=== PATIENT | female | born 1950 | race Caucasian/White ===

== ENCOUNTER 2020-07-05 21:27 | Inpatient (IN) | payer OTHER ==
[~2020-07-05] VITALS: Ht 160 cm; Wt 113.4 kg
[2020-07-05 21:28] VITALS: BP 163/91
[2020-07-05] MEDS ORDERED: METFORMIN HCL500 M3 PO (21:39)
[2020-07-05] MEDS ORDERED: PRINIVIL10 MG PO (21:39)
[2020-07-05] MEDS ORDERED: ALPRAZOLAM 0.0.25 M1 PO (21:40)
[2020-07-05] MEDS ORDERED: LIPITOR 20 MG T20 M1 PO (21:50)
[2020-07-05 23:05] LABS: URINE BILIRUBIN 2+ (Negative); URINE BLOOD 2+ (Negative); URINE CLARITY CLEAR; URINE COLOR YELLOW; URINE GLUCOSE-RANDOM* NEGATIVE (Negative); URINE KETONES 1+ (Negative); URINE NITRITE-REFLEX NEGATIVE (Negative); URINE PROTEIN (DIPSTICK) TRACE (Negative); URINE SPECIFIC GRAVITY >= 1.030 (1.005-1.035); URINE UROBILINOGEN 0.2 E.U./dl (0.2-1.0)
[2020-07-05 23:06] LABS: ABSOLUTE NEUTROPHILS 10.2 thou/uL (1.4-8.2); BASOPHILS 0.7 % (0.0-2.0); EOSINOPHILS 0.5 % (0.0-3.0); HEMATOCRIT 38.1 % (37.0-47.0); HEMOGLOBIN 12.4 gm/dL (12.0-15.0); LYMPHOCYTES 9.4 % (24.0-44.0); MCHC 32.6 g/dL (28.0-37.0); MCV 92.1 fL (80.0-100.0); MONOCYTES 4.8 % (1.0-8.0); PLATELET COUNT 329 thou/uL (150-400); POLYS 84.6 % (36.0-66.0); RBC 4.13 mil/uL (4.20-5.00); RDW 16.7 % (10.5-14.5)
[2020-07-05 23:11] LABS: URINE LEUKOCYTES-REFLEX 1+ (Negative)
[2020-07-05 23:12] LABS: ICTOTEST (BILI CONFIRMATORY) Positive (Negative)
[2020-07-05 23:13] LABS: AMP/METHAMP Negative (Negative); BARBITURATES Negative (Negative); BENZODIAZEPINES POSITIVE (Negative); COCAINE Negative (Negative); METHADONE Negative (Negative); OPIATES Negative (Negative); PCP Negative (Negative)
[2020-07-05 23:14] LABS: HYALINE CASTS 0-3 Few /LPF (None Seen); MUCUS 0-3 Light strn/LPF (None Seen); SQUAMOUS 0-3 Few /LPF (0-3); URINE RBC 3-10 Few /HPF (0-2)
[2020-07-05 23:15] LABS: BACTERIA-REFLEX 1-9 Few /HPF (None Seen); CRYSTALS None Seen /LPF (None Seen); TRANSITIONAL EPITHEL CELL 0-3 Few /LPF (None Seen)
[2020-07-05 23:18] LABS: ANION GAP 18 mmol/L (7-16); BUN 18 mg/dL (7-18); CHLORIDE 102 mmol/L (98-107); CO2 20 mmol/L (21-32); CREATININE 1.5 mg/dL (0.6-1.0); GLUCOSE 119 mg/dL (74-106); POTASSIUM 3.8 mmol/L (3.5-5.1); SODIUM 140 mmol/L (136-145)
[2020-07-05 23:28] LABS: ALBUMIN 3.7 g/dL (3.4-5.0); SALICYLATE < 2.8 mg/dL (2.8-20.0); SGOT 22 U/L (15-37); SGPT 19 U/L (30-65); TOTAL BILIRUBIN 0.9 mg/dL (0.2-1.0); TOTAL PROTEIN 7.7 g/dL (6.4-8.2); TROPONIN-I <0.06 ng/mL (<0.06)
[2020-07-05 23:29] LABS: MAGNESIUM 0.7 mg/dL (1.8-2.4)
--- NOTE | 2020-07-06 10:46 | EKG ---
[facility] [place] [address] ELECTROCARDIOGRAM REPORT Name: ROBERTO CARLOS MALIK Room #: 170-9 ADM IN M.R.#: [id number] Admission: 07/06/20 Attend Phys: Darin Castro MD Discharge: Date of : 50 Report #: [id number] THIS REPORT FOR: cc: FAM - Family physician unknown FAM - Family physician unknown Chapito Garrett MD ~ THIS REPORT FOR: //name// [facility] ED Test Date: 2020-07-05 Test Time: 22:38:12 Pat Name: ROBERTO CARLOS MALIK Department: Room: [facility] Gender: F Cardiopulmonary Technologist: no : 1950 Requested By: Rashaad Givens Order Number: [id number] MD: Chapito Garrett Measurements Intervals [place] Rate: 79 P: 21 [place]: 168 QRS: -21 QRSD: 85 T: 31 QT: 363 QTc: 417 Interpretive Statements Sinus rhythm Abnormal R-wave progression, early transition Left ventricular hypertrophy No previous ECG available for comparison Electronically Signed On 07-06-2020 10:46:18 CDT by Chapito Garrett [email or web address] <ELECTRONICALLY SIGNED> By: Chapito Garrett MD 07/06/20 1046 37 37 Chapito Garrett MD /EPI
--- NOTE | 2020-07-06 15:09 | NUR ---
PT'S SON JEANCARLOS [phone]
--- NOTE | 2020-07-06 19:13 | NUR ---
PATIENT ADMITTED TO ROOM AT THIS TIME. ORIENTED TO ROOM AND CALL LIGHT. PLEASANT AT THIS TIME. RESPIRAITONS ARE NON LABORED.
[2020-07-06 19:22] VITALS: BP 152/62
[2020-07-06 21:51] LABS: ABSOLUTE NEUTROPHILS 5.7 thou/uL (1.4-8.2); BASOPHILS 0.9 % (0.0-2.0); EOSINOPHILS 2.8 % (0.0-3.0); HEMATOCRIT 32.9 % (37.0-47.0); HEMOGLOBIN 10.8 gm/dL (12.0-15.0); LYMPHOCYTES 19.8 % (24.0-44.0); MCH 30.7 pg (26.0-34.0); MCHC 32.8 g/dL (28.0-37.0); MCV 93.8 fL (80.0-100.0); MONOCYTES 6.1 % (1.0-8.0); PLATELET COUNT 271 thou/uL (150-400); POLYS 70.4 % (36.0-66.0); RDW 17.3 % (10.5-14.5); WBC 8.1 thou/uL (4.0-11.0)
[2020-07-06 21:57] LABS: CALCIUM 7.8 mg/dL (8.5-10.1); CREATININE 1.1 mg/dL (0.6-1.0); MAGNESIUM 1.6 mg/dL (1.8-2.4); POTASSIUM 3.8 mmol/L (3.5-5.1)
--- NOTE | 2020-07-06 23:10 | NUR ---
PT ARRIVED TO UNIT AT 1845. PT RESTING IN BED. PT TALKING TO NURSE WITH HER EYES CLOSED, REQUESTING LIGHTS NOT BE ON OVERHEAD. PT HAS BLUNTED AFFECT ANSWERED ADMISSION QUESTIONS WITH SHORT RESPONSES. PT ALERT TO SELF SITUATION. POOR HISTORIAN. NO PAPERWORK FROM ASISSTED LIVING. NO FAMILY CONTACT INFORMATION. PT REPORTED HAVING MUSLE SPASMS IN ARMS. PT GROGGY, HAD PREVIOUS HALDOL MEDICATION. IV INFILTRATED. PROVIDER NOTIFIED. WILL ATTEMPT TO RESTART. PT HAS PALE SKIN TONE, BLE EDEMA. BED ALARM ON.
--- NOTE | 2020-07-07 01:23 | NUR ---
PT AWAKENED, AMBULATED TO RESTROOM STEADY GAIT, CONTINENT. 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 PT STATED HER SON DOES LIVE IN THE AREA BUT HER CELL PHONE IS NOT CHARGED AND SHE DOES NOT KNOW THE NUMBER. PT STATED SHE WAS ADMITTED BECAUSE SHE CALLED THE POLICE BECAUSE SHE BELIEVED OLDER TEENS, UNDER 20 WERE IN HER HOUSE WATCHING TV AND ON HER [place]. SHE BELIEVED THEY WERE FROM THE AMUSEMENT AREA LOCATED NEAR HER ARCHER APARTMENT. BED ALARM ON. AT THIS TIME PT STILL DOES NOT HAVE IV ACCESS, WITH GAUGE CHECKER HAVING A FAILED ATTEMPT.
--- NOTE | 2020-07-07 02:36 | NUR ---
IV STARTED FLUIDS AND ANTIBIOTICS GIVEN.
[2020-07-07 05:14] VITALS: BP 149/56
[2020-07-07 08:00] VITALS: BP 155/81
[2020-07-07 12:52] LABS: HEMOGLOBIN 11.3 gm/dL (12.0-15.0); MCH 30.7 pg (26.0-34.0); MCHC 33.1 g/dL (28.0-37.0); MCV 92.6 fL (80.0-100.0); RBC 3.67 mil/uL (4.20-5.00); RDW 16.7 % (10.5-14.5); WBC 8.1 thou/uL (4.0-11.0)
[2020-07-07 13:06] LABS: CALCIUM 8.1 mg/dL (8.5-10.1); MAGNESIUM 1.3 mg/dL (1.8-2.4); POTASSIUM 3.9 mmol/L (3.5-5.1)
[2020-07-07 15:09] VITALS: BP 145/78
--- NOTE | 2020-07-07 18:39 | NUR ---
RN HAS ASSUMED PT'S CARE AT 0700AM, PT IS A&OX2 ( PERSON AND PLACE), PT IS CONFUSED AT TIME, PT'S VS ARE STABLE, PT IS CONTINUING IV FLUID AND IV ABX, PT HAS LOW MAGNISSUM ( 1.3) REOLACEMENT, PT'S COVID TEST WAS NEGATIVE , PT'S ISOLATION HAS DC PER DR CRAWFORD, PT DOES NOT HAVE PAIN AND SOB.
[2020-07-07 19:30] VITALS: BP 146/69
[2020-07-07 23:00] VITALS: BP 163/86
--- NOTE | 2020-07-08 00:04 | NUR ---
ASSUMED CARE FROM DAY SHIFT PT RESTING IN BED CALM COOPERATIVE, ALERT AND ORIENTED X4 FORGETFUL IN NTHAT PT ATTEMPTED TO GET UP TO BSC WITHOUT CALLING ASSESSMENT COMPLETED AND CHART DISCUSSED POC ,VERBALIZZED UNDERSTANDING. PT TO BE TRANFERRRD TO ROOM 452. HOUSE DESIGNER SHOWS NSR. PT STABLE TO TRANFER , REPORT CALLED TO INOCENCIO NICHOLS.
--- NOTE | 2020-07-08 03:26 | NUR ---
ASSUMED PT CARE AT 2240. PT IS ALERT TO SELF AND SITUATION. IV IN LEFT WRIST. NS RUNNING AT 75. VITAL SIGNS STABLE. PT IS A SBA. PT FORGETS TO CALL FOR ASSISTANCE. PT IS SLEEPING IN HER ROOM. FALL BUNDLE IN PLACE, CALL LIGHT IN REACH.
[2020-07-08 05:18] VITALS: BP 148/103
[2020-07-08 06:17] LABS: CALCIUM 8.2 mg/dL (8.5-10.1); MAGNESIUM 1.8 mg/dL (1.8-2.4); POTASSIUM 3.7 mmol/L (3.5-5.1)
--- NOTE | 2020-07-08 07:26 | NUR ---
I AGREE WITH ALL CHARTING BY Martha MARTIN LPN
--- NOTE | 2020-07-08 09:17 | NUR ---
Nutrition: Pt admitted confusion[place]I from [place] facility. Delerium, possible psychosis. Psych consult. PMH includes anxiety, depression. Poor historian noted. No weight hx. BMI 44, extreme class 3 obesity. Meds/labs reviewed. PO documented as 20%/20%/50% of meals yesterday. Pt unable to voice many food preferences or usual appetite but did state she had some stomach issues/nausea prior to admit. Drinks Boost at home. Offer ensure daily and follow po trends. RD encouraged po > 50% of meals and offered assist to order meals as desired. Followup 07/12 if pt remains admitted on acute floor.
[2020-07-08 14:50] VITALS: BP 188/105
--- NOTE | 2020-07-08 15:04 | NUR ---
PT ADMITTED RELATED TO CONFUSION. CM REVIEWED CHART AND SPOKE WITH CARE TEAM. CM CALLED AND SPOKE WITH PT'S SON HE INDICATED THAT PT RESIDES IN AN INDEPENDENET LIVING APARTMENT AT [facility]. 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 HE INDICATED THAT PT HAS A PCP BUT CAN'T RECALL NAME. HE INDICATED THAT THEY LIKELY WOULDN'T BE OPPOSED TO [facility]/HH SERVICES. CM TO FOLLOW INDICATED WITH DC PLANNING. MAULIKTER WITH [facility] TO ASSESS PT WELL.
[2020-07-08 19:47] VITALS: BP 155/84
--- NOTE | 2020-07-08 20:05 | NUR ---
ASSUMED PT CARE THIS AM. PT HAD ELEVATED BLOOD PRESSURE, AND BLOOD PRESSURE MEDICATIONS WERE ORDERED AND GIVEN. BLOOD PRESSURE HAS DECREASED THROUGHOUT THE SHIFT. PT WAS A&OX4, BUT THROUGHOUT THE SHIFT BECAME ALERT TO PERSON AND PLACE. PT HAD NO SKIN ISSUES, AND USED THE BEDSIDE COMMODE APPROPRIATELY. PT ON TELEMETRY WAS NSR. PT HAD AN IV IN HER LEFT WRIST WITH FLUIDS RUNNING, BUT REMOVED HER IV AT 1420. PATIENT STARTED HEARING AUDITORY HALLUCINATIONS AROUND 1300, WAS ABLE TO BE REDIRECTED, AND AT 1420 PATIENT ATTEMPTED TO LEAVE THE UNIT STATING THAT SHE HAD A CAR WAITING FOR HER. PATIENTS SON WAS CALLED AND ATTEMPTED TO REDIRECT, BUT PATIENT FREQUENTLY TRIED TO LEAVE UNIT. PATIENT GIVEN HALDOL AND AGREES TO SIT IN A CHAIR. PT REFUSES TO LAY IN BED WITH THE BED ALARM ON, AND PT REFUSES TO SIT IN CHAIR WITH A CHAIR ALARM. NIGHT NURSE MADE AWARE. PT DID NOT MAKE HER NEEDS KNOWN TO THE NURSING STAFF EVEN THOUGH EDUCATED TO USE THE CALL LIGHT. DR. MCCABE AND DR CRAWFORD MADE AWARE OF PT BEHAVIOR. PT REMOVED AN ECG LEAD AND REFUSES TO HAVE IT PUT BACK ON. PT REFUSED BATH OR SUSAN CARE. NIGHT NURSE ENDORSED OF PATIENT PROGRESSION.
--- NOTE | 2020-07-09 05:50 | NUR ---
Assumed pt care at 1900. Pt A/OX4,pleasant sitting on the chair w/o any behavioral issues noted;sitter in room with pt through the night with episodes of hallucination or agitation. Took HS meds w/o any problems. Up with SBA. Continent of B&B. Pt chose to sleep on the recliner at night. Pt still has no IV Dr. aware. Will continue to monitor pt.
[2020-07-09 07:21] VITALS: BP 173/82
[2020-07-09 09:13] VITALS: BP 173/82
--- NOTE | 2020-07-09 11:24 | NUR ---
Assumed pt care at 7am.Pt in and out of chair and bed independently.Rn and brusher tender frequently monitoring pt for safety.Assessment completed.vss but elevated bp noted.Am meds given with breakfast and well tolerated.Dr Larios here,stated that pt might possibly dc to [facility] later today if hallucination better.Pt in bed resting and watching tv at present.Fall bundle in place.Will continue to monitor.
--- NOTE | 2020-07-09 16:39 | NUR ---
CARE TEAM INDICATED THAT PT HAS BEEN ACCEPTED FOR ADMISSION TO [address] [place] [address] AND IS MEDICALLY STABLE TO DC THERE TODAY. CM CALLED AND NOTIFIED PT'S SON. HE IS AWARE AND AGREEABLE. CM PROVIDED HIM PHONE NUMBER FOR UNIT. CHART COPY ORDERED. NURSE CALLED REPORT. NO OTHER CM INTERVENTION INDICATED. CASE CLOSED.
[2020-07-09] MEDS ORDERED: METFORMIN HCL500 M3 PO (20:17)
[2020-07-09] MEDS ORDERED: LISINOPRIL2.5 MG PO (20:18)
[2020-07-09] MEDS ORDERED: ALPRAZOLAM XR3 MG PO (20:20)
[2020-07-09] MEDS ORDERED: LIPITOR 20 MG T20 M1 PO (20:21)
== END 2020-07-09 18:10 | DRG 689 ==
LOC: ER 21:27 → 4W 07-06 05:09 → EROBS 07-06 05:09 → 3W 07-06 18:28 → 4W 07-07 22:47
PROVIDERS: Emergency Medicine; ADMIT Internal Medicine; ATTEND Internal Medicine
DX: N39.0 Urinary tract infection, site not specified (principal); G93.41 Metabolic encephalopathy; Z68.41 Body mass index [BMI] 40.0-44.9, adult; I12.9 Hypertensive chronic kidney disease with stage 1 through stage 4 chronic kidney disease, or unspecified chronic kidney disease; E11.22 Type 2 diabetes mellitus with diabetic chronic kidney disease; E78.5 Hyperlipidemia, unspecified; N18.9 Chronic kidney disease, unspecified; F41.9 Anxiety disorder, unspecified; B96.89 Other specified bacterial agents as the cause of diseases classified elsewhere; M81.0 Age-related osteoporosis without current pathological fracture; G47.00 Insomnia, unspecified; R63.4 Abnormal weight loss; Z20.828 Contact with and (suspected) exposure to other viral communicable diseases; E83.42 Hypomagnesemia; F32.9 Major depressive disorder, single episode, unspecified; Z79.899 Other long term (current) drug therapy; Z79.84 Long term (current) use of oral hypoglycemic drugs; Z88.1 Allergy status to other antibiotic agents; Z88.2 Allergy status to sulfonamides
CPT/HCPCS: 10045; 10879

== ENCOUNTER 2020-07-09 16:58 | Inpatient (IN) | payer OTHER ==
[~2020-07-09] VITALS: Ht 160 cm; Wt 110.5 kg
[~2020-07-09 16:58] MED LIST: ALPRAZOLAM 0.0.25 M1 PO; LIPITOR 20 MG T20 M1 PO; METFORMIN HCL500 M3 PO; PRINIVIL10 MG PO
--- NOTE | 2020-07-09 19:16 | NUR ---
Patient was discharged from 452 and arrived for admission at 1755 to [facility] room 522B. She was downstairs for low Magnesia and visual hallucinations. Allergy=Sulfa. Mental Healathwise she has been treated for Anxiety and Depression--mostly Anxiety. She is a Full Code status. Patient is alert and oriented x 4. Other medical issues include HTN., DMII, per Dr. Larios's note 07-09-20 UTI was ruled out on cultures-Mixed Debbi. Yesterday she tried to elope from the hospital, today she was fine per day nurse report on 4th floor. She has been on a Heart Healthy Diet. Her in a hospital about 4 months ago with several medical complications blood clots in the lungs and being coded. She is a voluntary patient. In the pasts 5-6 months she reports about 60 # weight loss. Ht.=5'3.5"; 238.9# in the bed. Her ankles are [id number]. She's had stomach problems with emesis, can't eat very well, visual hallucinations, forgetfulness she associates with the grief of her . No substance abuse history, nor smoking history. She has right forearm and a tiny scab R. forearm. She thought she was on a plane yesterday in the [facility] where a saint statue was next to a great big buidling. She was oriented to her room, given welcome packet/bucket toileteries, shown the unit and introduced to her roommate and a couple of other patients she might like to converse with.
[2020-07-09] MEDS ORDERED: METFORMIN HCL500 M3 PO (20:17)
[2020-07-09] MEDS ORDERED: LISINOPRIL2.5 MG PO (20:18)
[2020-07-09] MEDS ORDERED: ALPRAZOLAM XR3 MG PO (20:20)
[2020-07-09] MEDS ORDERED: LIPITOR 20 MG T20 M1 PO (20:21)
--- NOTE | 2020-07-10 03:13 | NUR ---
Assumed care of patient this pm shift. Patient is in good spirits and accepting of being admitted to [facility]. Patient is alert and oriented x3. Patients affect is slightly blunted. Patient is medication adherent and takes meds whole with thin fluids. Patient is ambulatory with a steady gait and not considered a falls risk. Patients assessment shows no signs of acute distress. Patient is somewhat isolative. Paitent denies pain. Patient denies hi/si. Patient is continent of bowel and bladder. Patient did not have any concerns at this time. We will continue to monitor per hospital policy.
[2020-07-10 08:00] VITALS: BP 142/93
[2020-07-10 08:58] VITALS: BP 142/93
[2020-07-10 19:37] VITALS: BP 151/92
[2020-07-10 19:54] VITALS: BP 138/92
[2020-07-11 00:28] VITALS: BP 138/92
--- NOTE | 2020-07-11 00:32 | NUR ---
Assumed care on 07/10/20 @ 19:30, A&Ox4 Calm and cooperative with care. Ambulates with walker, low fall risk and Horowitz score15. Denies hallucinations denies pain. Reports last bm yesterday on 07/09. 100% of evening snack eaten. Socializing with peers, seated around a table in the mileu. Retired to bed after TV is turned off @ 2200. Bed in low position, bed alarm set, will continue to monitor as per unit protocol for safety and comfort.
[2020-07-11 07:32] VITALS: BP 127/78
--- NOTE | 2020-07-11 09:35 | NUR ---
SITTING QUIETLY WITH PEERS ON INITIAL APPROACH THIS AM-SMILING AND PLEASANT WITH PEERS AND STAFF BUT OFFERS MINIMAL VERBAL [id number] TO NAME IS AWARE IN "MEDICAL BUILDING" GAIT STEADY WITHOUT ASSISTIVE DEVICES-WANDERING IN HALLWAYS AND APPEARS UNABLE TO FIND ROOM WAS STANDING AT LOCKED EXIT DOOR STATING SHE WAS LOOKING FOR HER ROOM. DENIES C/O PAIN. NO NOTED OR REPORTED A/V HALLUCINATIONS OR DELUSIONAL THOUGHTS.
--- NOTE | 2020-07-11 12:35 | NUR ---
SRI met with pt in her office and discussed why pt was on unit. She talked about her grief and that she lost her on 02/12/2020. She said she lost her bestfriend. SW recapped what was discussed in yesterday's grief and loss group. Pt and SW talked about what stage of grief she is in. They also discussed somatic symptoms. Pt said today she is having difficulty walking. She said she was ready to lay down. SW assisted her to her room in a wheelchair because pt said she was too weak to walk. SRI relayed this info to pt's nurse. SRI also left a tablet with a mindfulness mediation with pt in her room for relaxation purposes. SW team will follow pt during her stay on this unit.
[2020-07-11 19:27] VITALS: BP 136/69
--- NOTE | 2020-07-12 04:48 | NUR ---
Assumed care of pt @ 1900. Pt calm et cooperative with pleasant demeanor this shift. Took medications whole without difficulty. Ambulates the halls ad barrie with steady gait. VSWNL. Health assessment with no abnormalities noted at present time. Denies SI/HI/AH/VH at present time. Socialized in dayroom with peers until HS. Currently resting in bed with eyes closed. Will continue to monitor per protocol.
[2020-07-12 07:51] VITALS: BP 143/65
--- NOTE | 2020-07-12 10:12 | NUR ---
Assumed care 0700. Pleasant, cooperative, compliant with medications. Voices no complaints/concerns. Conversant with peers. Receiving phone call.
--- NOTE | 2020-07-12 11:32 | NUR ---
SRI met with pt and completed a SLUMS. She scored a . SRI provided an update to Dr. Mosley. SW asked pt how she was feeling and she said she is feeling better. SW team will continue to follow pt during her stay on this unit.
--- NOTE | 2020-07-12 16:40 | NUR ---
Compliant with medications and milieu groups. Has been using colored markers coloring. Visiting with peers. No voiced concerns/goals/pain. No SI/HI/AH/VH. Said she did not sleep well last night due to roommate getting up so many times to void. Patient moved to 518 A.
--- NOTE | 2020-07-12 18:30 | NUR ---
Dr. Kirby's office was left voice mail for routine testing from Dr. Mosley.
[2020-07-12 19:32] VITALS: BP 115/55
--- NOTE | 2020-07-13 01:59 | NUR ---
PT ALERT AND ORIENTED X4. CALM AND COOPERATIVE. TAKES MEDS WHOLE WITH NO DIFFICULTIES.LOW FALL RISK, GETS AROUND WITH WALKER. PT WENT TO BED EARLIER IN SHIFT. SEEMS TO BE RESTING WELL.NO SIGNS OF HALLUCINATIONS.
[2020-07-13 08:00] VITALS: BP 144/58
--- NOTE | 2020-07-13 09:05 | NUR ---
0700 ASSUMED CARE OF PATIENT, PATIENT AWAKE IN ROOM AT THAT TIME. 0730 PATIENT OUT TO DAYROOM AMB WITH WALKER WITH STEADY GAIT. 0840 MEDICATIONS GIVEN WHOLE WITHOUT DIFFICULTY. NO C/O PAIN, DENIES NEEDS, DENIES SI/HI. PATIENT SITTING WITH PEERS COMMUNICATING WELL. VS STABLE WITH NO TEMP.
--- NOTE | 2020-07-13 12:23 | H ---
[facility] [place] [address] HISTORY AND PHYSICAL Name: ROBERTO CARLOS MALIK Room #: 518A-A ADM IN M.R.#: [id number] Admission: 07/09/20 Attend Phys: oRse Wood MD Discharge: Date of : 50 Report #: [id number] THIS REPORT FOR: cc: FAM - Family physician unknown FAM - Family physician unknown Eris Mosley DO ~ CC: RINA unknown Rose Wood DATE OF SERVICE: 07/09/2020 INPATIENT PSYCHIATRIC EVALUATION ATTENDING PHYSICIAN: Eris Mosley DO. MEDICAL CONSULTANTS: Suma Nagy and her collaborating physician, Darin Castro MD REASON FOR ADMISSION: Referral from Dr. Rose Wood, the consultation, and he is a psychiatrist here at [facility], who saw the patient on the medical floor. In addition to suffering from delirium due to urinary tract infection, the patient has had a profound depression in the last 3 months following the of her , 39 years. HISTORY OF PRESENT ILLNESS: This is a 69-year-old morbidly obese female, reporting depression, sadness, difficulty concentrating evolution, worsening over the past 3 months. The patient had of her in January of this year and a month later, moved to jail community. She has felt very sad, low motivation as stated, has not been able to eat, lost greater than 30 pounds since of her . She lives alone reportedly in assisted living, but I thought it was ____ from her description. She feels very isolated after her 's and the COVID social distancing measures at her facility. PAST PSYCHIATRIC HISTORY: Major depressive disorder, has had outpatient treatment trial. She told me she was treated by Dr. Marrero and another unspecified doctor. She changed the PCP due to cost. We called her pharmacy and sounds like she was taking 150 mg of Effexor and 150 mg of Wellbutrin XL, this was up to a week or so before admission. Then on the medical floor, they diagnosed UTI, hypomagnesemia, and visual hallucinations. Chest x-ray was done, which showed no acute abnormalities. Additional history from Dr. Thompson, apparently during the medical admission, she was so confused and agitated, she attempted to leave the apartment. ALLERGIES: SULFA. [facility] [address] [place] [address] HISTORY AND PHYSICAL Name: ROBERTO CARLOS MALIK [facility] M.R.#: [id number] Admission: 07/09/20 Attend Phys: Rose Wood MD Discharge: Date of : 50 Report #: [id number] HOME MEDICATIONS: Noted to be metformin 500 mg p.o. daily, lisinopril 10 mg p.o. daily, alprazolam 0.25 mg p.o. b.i.d., and atorvastatin 20 mg p.o. daily. SOCIAL HISTORY: No history of smoking. Past history of alcohol, none recent, special occasions. No recreational drug use. No significant family history. REVIEW OF SYSTEMS: From the hospitalist's eval today includes: CONSTITUTIONAL: Denies fever, chills or night sweats. EYES: Denies visual changes. HENT: Denies congestion, headache, difficulty swallowing. RESPIRATORY: Denies cough, shortness of breath, hemoptysis or sputum production. CARDIOVASCULAR: Denies chest pain, syncope. GASTROINTESTINAL: Denies abdominal pain, nausea, vomiting, diarrhea or blood loss. GENITOURINARY: Denies hematuria or dysuria. MUSCULOSKELETAL: Denies back pain. SKIN: Denies rash, bruise or change in color. NEUROLOGIC: Denies focal weakness, seizures or tremors. PSYCHIATRY: Depression, weight loss. Does report nightmares and intermittent panic attacks. Of note, she describes experience where she thought she was on an airplane and flew away and this was only yesterday. LABORATORIES ON MEDICAL ADMISSION: 07/08/2020, sodium 140, potassium 3.7, chloride 106, bicarbonate 21, anion gap 13, BUN 17, creatinine 1.0, estimated GFR 55, glucose 106, calcium 8.2, ionized calcium 4.4, phosphorus 3.3, magnesium 1.8, total bilirubin 0.9, AST 22, ALT 19, alkaline phosphatase 83. Troponin less than 0.06, NT-proBNP of 594. Total protein 7.7, albumin 3.7. Vitamin B12 low at 305, Vitamin D low at 17.9. Urinalysis had multiple positives. Microbiology failed to culture a specific organism. COVID-19 PCR serology was negative. Toxicology was negative except positive for benzodiazepines, which was expected. ADDITIONAL SOCIAL HISTORY: Born in [place], [place], raised in [place], [place]. She has 3 master's degrees. 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 She had an education which I forgot. She has one son that she told me about. Denies physical, sexual or emotional abuse. Now retired. She said her of chronic illness. Denied service. Denies criminal justice history. Unclear history of international travel. PHYSICAL EXAMINATION: Normal gait and station. MENTAL STATUS EXAMINATION: This is a well-developed, well-nourished, obese female appearing stated age. Attention intact. Concentration intact. [facility] [address] [place] [address] HISTORY AND PHYSICAL Name: ROBERTO CARLOS MALIK Room #: 518A-A ADM IN M.R.#: [id number] Admission: 07/09/20 Attend Phys: Rose Wood MD Discharge: Date of : 50 Report #: [id number] Speech is normal in rate, volume and tone. Thought process: Linear and goal directed. Thought content: Focused on ameliorating situation. Denied SI or HI. Some helplessness, some hopelessness. Denied auditory, visual or tactile hallucinations. Endorses nightmares "flashbacks" consider them such, especially disturbing dreams." Memory is not formally tested, but we will do in the next several days. Insight fairly limited. Judgment fair. Fund of knowledge above average. FORMULATION: A 69-year-old female admitted for severe depressive episode with resolving psychosis secondary to urinary tract infection. PLAN: Evaluate, stabilize and obtain collateral. We will hold off starting antipsychotics as she may not need it. I reviewed with her antidepressant history. I will go ahead and start her on mirtazapine 15 mg p.o. at bedtime and she has been off bupropion and Effexor. We will not start those at this time, particularly the Effexor she felt had lost efficacy in her case and she may have been 225 mg on it. Current medications are B12 1000 mcg p.o. daily due to low B12, cholecalciferol 1000 International Units p.o. daily, mirtazapine 15 mg p.o. at bedtime, metformin 500 mg p.o. b.i.d., calcium carbonate 500 mg 3 times a day. Also, using a couple more doses of IM B12, lisinopril 10 mg p.o. daily, famotidine 20 mg p.o. daily, atorvastatin 20 mg p.o. daily. House PRNs. ESTIMATED LENGTH OF STAY: 5-10 days. Time spent on interview, review of records, coordination of this case about 45 minutes. STRENGTHS: She is insured. Intelligent. WEAKNESSES: Multiple health problems including morbid obesity. <ELECTRONICALLY SIGNED> By: Eris Mosley DO 07/13/20 1223 30 30 Eris Mosley DO /nt
--- NOTE | 2020-07-13 16:38 | NUR ---
SW met with patient to help her process her grief as a result of of her approximately 4 months ago. SW helped validate her experience. Discussed the stages of grief and helped patient to identify where she is in the process. Patient reported feeling better.
[2020-07-13 20:19] VITALS: BP 126/75
--- NOTE | 2020-07-14 01:05 | NUR ---
Patient assessed AND IS ALERT X 4. SKIN WARM AND DRY. RESP EVEN AND UNLABORED. IS VERY COOPERATIVE WITH NO SI/HI SYMPTOMS NOTED. TAKEN HER MEDIACTION WELL. TYLENOL GIVEN FOR BACK PAIN WITH GOOD RELIEF. ALSO REQUESTED A SPRITE. NO CONFUSION NOTED. VS STABLE. NO HALLUCINATIONS NOTED. SLEPT WELL . REQUESTED FOR EXTRA BLANKETS SHE WAS COLD. UP AD VIBHA IN HALLWAY AND DINNING ROOM. SITS WITH OTHER PATIENTS AND IS VERY COOERATIVE WITH THEM. NO EDEMA NOTED. LUNGS CTA. CONT PLAN OF CARE. NO OTHER SYMPTOMS NOTED.
[2020-07-14 07:30] VITALS: BP 141/73
--- NOTE | 2020-07-14 10:11 | NUR ---
0700 ASSUMED CARE OF PATIENT, PATIENT SITTING UP IN CHAIR IN DAYROOM AT THAT TIME. PATIENT SITTING WITH PEER COMMUNICATING WELL. 0840 MEDICATION GIVEN WHOLE WITHOUT DIFFICULTY. VS STABLE, LS CLEAR, BS ACTIVE, C/O LOWER BACK PAIN AND DENIES NEED FOR MEDICATION. PATIENT IS CALM AND COOPERATIVE, DENIES SI/HI/AH/VH. PATIENT DENIES DEPRESSION AT THIS TIME. PATIENT NOTED SMILING WHEN TALKING WITH GROUP OF PEERS AT TABLE.
--- NOTE | 2020-07-14 13:47 | NUR ---
AT 1304 PATIENT GIVEN TYLENOL 650MG PO FOR C/O LOWER BACK PAIN RATING AN 8. ON REASSESSMENT OF PAIN PATIENT PATIENT STATES PAIN DECREASED RATING IT A 6. PATIENT IS LYING IN BED RESTING. WILL CONTINUE TO OBSERVE
[2020-07-14 19:23] VITALS: BP 121/62
--- NOTE | 2020-07-15 03:37 | NUR ---
PATIENT COOPERATIVE WITH CARE. SITTING AT TABLE WITH PEERS AT BEGINNING OF SHIFT. MEDICATED WITH IBUPROFEN FOR LOWER BACK PAIN. ABLE TO REST THROUGHOUT THE NIGHT ONLY COMING TO THE DESK ONCE TO REQUEST WASHING OF HER CLOTHES. WILL MONITOR.
[2020-07-15 08:48] VITALS: BP 108/41
[2020-07-15 08:50] VITALS: BP 108/41
--- NOTE | 2020-07-15 10:18 | NUR ---
PATIENT CARE ASSUMED AT 1900 - ALERT AND ORIENTED - RESPONSIVE TO QUESTIONS ADDRESSED - STATED WAS CONCERNED ABOUT UTI AND ANTIBIOTIC - PATIENT STATED ADMITTED AND FEELS ALOT OF HER DEPRESSION AND CONFUSION WAS BASED ON THAT. ADVISED LABS SHOW UTI IMPROVED - REQUESTED EYE DROPS PRN - SPOKE WITH DR. ALEJANDRO AND APPEARED TO GO WELL. VOICED HER CONCERNS AND ATTENTIVE TO DISCUSSION. DENIES ANY S/I OR H/I - FEELS MUCH BETTER - AFFECT BRIGHT AND MOOD POSITIVE AND CALM. MAKES NEEDS KNOWN READILY. MEDICATION COMPLIANT - AMBULATES INDEPENDENTLY WTIH STEADY GAIT - AWARE OF HER LIMITATIONS. GOOD APPETITE - 100 PERCENT OF BREAKFAST. WILL CONTINUE TO MEET CONCERNS AND MONITOR PATIENT NEEDS.
--- NOTE | 2020-07-15 12:48 | NUR ---
SRI received confirmation in tx team that pt will undergo a neuropsych exam on 07/16 @ 12pm. SRI sent a reminder email to the hothouse worker concerning the visit mentioned. SW team will continue to follow pt during her stay on this unit.
[2020-07-15 19:24] VITALS: BP 136/71
--- NOTE | 2020-07-15 21:37 | NUR ---
Care assumed of patient at 1915: Patient seated in dayroom at start of shift. Conversing and interacting well with other peers. Observed with bright affect, smiling and laughing. Patient calm, pleasant and cooperative. Alert and oriented x4. Patient denies depression and anxiety. Denies SI/HI/AH/VH. Patient reports that she has episodes of becoming frustrated with other peers that tend to yell out. Patient showing good coping mechanisms of removing herself from the situation, walking around and taking a break. Patient reports lower back pain due to sitting "for too long". Provided PRN Ibuprofen which was helpful in reducing pain. Patient also reports that lying down reduces pain. Patient ate 100% HS snack. Took HS medication whole without difficulty. Patient was able to retire to bed and fall asleep without difficulty. Patient resting quietly at this time.
[2020-07-16 07:34] VITALS: BP 140/68
--- NOTE | 2020-07-16 10:27 | NUR ---
PATIENT CARE ASSUMED AT 0700 - STATED HAD GOOD NIGHT SLEEP. QUESTIONED WHY C-PAP WAS NOT AVAILABLE. CLAIMS ASKED FOR IT BUT CONFUSION ON WHO IT BELONGED TO. ADVISED WOULD LOOK INTO FOR HER. CLAIMS BACK DISCOMFORT YESTERDAY AND NOW SITTING IN JAVIER CHAIR. CLAIMS PAIN SUBSIDED AND MORE COMFORTABLE. AWARE OF NEURO TESTTING SCHEDULED FOR NOON AND FEELS CONFIDENT SHE WILL PASS. STILL FEELS ALOT OF HER CONFUSION AND DEPRESSION RELATED TO HER UTI AND VOICES THAT OFTEN - MEDICATION COMPLIANT. REQUESTED HER EYE DROPS PRN ONCE AGAIN. ATTENDED GROUP AND PARTICIPATED IN ACTIVITY- SOCIAL WITH PEERS AND STAFF. ALERT AND ORIENTED - GOOD APPETITE. MAKES NEEDS KNOWN READILY. DENIES ANY S/I OR H/I. STATED DEPRESSION AND ANXIETY HAS IMPROVED CONSIDERABLY.
--- NOTE | 2020-07-16 11:19 | NUR ---
RT Progress Note- Deann is active in the milieu and recreation groups at this time. Her affect and demeanor has brightened since her admission. During unscheduled time she is observed with a group of female patients who she socializes and colors with. She is active in groups and participates in all discussions. She verbalizes feeling "better." RT staff will continue to encourage participation in groups to increase coping skills and socialization.
--- NOTE | 2020-07-16 11:58 | NUR ---
SRI and Dr. Mosley met with pt's son Reji and his , and pt for a family meeting. Reji said his mother appears better to him. He asked about pt receiving HH services through [facility]. SRI said she will contact them and asked. SRI called [facility] and left a msg for the [employer] [facility] [employer]. SRI team will continue to follow pt during her stay on this unit.
[2020-07-16 19:20] VITALS: BP 153/89
--- NOTE | 2020-07-16 22:08 | NUR ---
Care assumed of patient at 1915: Patient seated in dayroom, interacting with peers at start start of shift. Patient calm, pleasant and cooperative. Smiling, appears happy, appropriate. Alert and oriented x4. Patient expressed no concerns. Patient denies SI/HI/AH/VH. Denies depression and anxiety. Denies pain and discomfort. Patient ate 100% HS snack. Took HS medication whole without difficulty. Patient retired to bed rather early this shift. Nurse assisted patient with CPAP. Patient was not able to recognize CPAP machine, mask or remember how to place mask on. Patient was able to fall asleep without difficulty and is resting quietly at this time.
[2020-07-17 08:44] VITALS: BP 139/40
--- NOTE | 2020-07-17 09:23 | NUR ---
0700 ASSUMED CARE OF PATIENT, PATIENT SITTING IN DAYROOM AT THAT TIME. PATIENT SITTING AT TABLE FOR BREAKFAST, DENIES NEEDS. 0840 MEDICATION TAKEN WHOLE WITHOUT DIFFICULTY. PATIENT DENIES PAIN, DENIES SI/HI. NO C/O DEPRESSION/ ANXIETY. WHEN ASKED ABOUT PEERS THAT WERE DC'D PATIENT SAID SHE WAS SAD BUT NO DEPRESSION. PATIENT IS QUIET AND COOPERATIVE. VS BP-139/40 P- 91 RESP- 20 TEMP- 97.4 O2 SATS 100% BP MED HELD THIS AM. PATIENT GOAL IS TO CONTINUE TO DO GOOD TO GET OUT OF HERE PATIENT STATES "I WAS TOLD POSSIBLY GOING HOME TODAY". PATIENT PRESENT IN GROUP THIS AM
--- NOTE | 2020-07-17 13:08 | NUR ---
SRI received a call from Kaylee East with [facility] asking for a return call [phone]. SRI did and gave her an update on pt. She asked for a referral and an order for HH. SW team will continue to follow pt during her stay on this unit.
[2020-07-17 14:11] VITALS: BP 139/40
--- NOTE | 2020-07-17 18:17 | NUR ---
NO BEHAVIORS NOTED FROM PATIENT. PATIENT IN ROOM RESTING IN BED. PATIENT DENIES NEEDS. NO C/O PAIN.
[2020-07-17 19:16] VITALS: BP 137/90
[2020-07-17 21:15] VITALS: BP 137/90
--- NOTE | 2020-07-18 00:17 | NUR ---
PATIENT SAT OUT IN DINING ROOM IN A RECLINER ALL EVENING. SHE DENIES PAIN, SI, HI/AVH. PATIENT STATES SHE IS HAPPY TO BE GOING HOME TOMORROW. SHE IS A/0X4. NO NEGATIVE BEHAVIORS NOTED. PATIENT STATES SHE DID HAVE A BM TODAY. SHE IS WONDERING IF THE DR WILL BE SENDING HER HOME ON REMERON SINCE SHE HAS HAD A PROBLEM WITH DECREASED APPETITE. PATIENT AMBULATES SLOW AND STEADY. PATIENT TOOK HER MEDS WHOLE WITH WATER WITHOUT INCIDENT. CPAP WAS SET UP FOR PATIENT AT BED TIME AND PATIENT HAS BEEN SLEEPING SINCE 2200. BED IN LOW POSITION . ROUTINE ROUNDING TO ASSESS SAFETY AND STATUS OF PATIENT. CONTINUING TO MONITOR.
--- NOTE | 2020-07-18 02:16 | NUR ---
PATIENT CAME TO NURSE STATION AT 0130 STATING HER CPAP QUIT WORKING. SHE WENT TO DINING ROOM TO SIT FOR A WHILE. I CHECKED HER CPAP MACHINE WHICH SHE HAD REMOVED FROM THE BEDSIDE TABLE AND PUT INTO A PAPER BAG. I REMOVED FROM THE BAG AND PUT HOOKED IT BACK UP AND LET PATIENT KNOW THAT IT WAS WORKING. ASSISTED PATIENT WITH PUTTING BACK ON AND RECHECKED HER TEMP AND PULSE. PATIENT SEEMED VERY CONFUSED WHEN SHE CAME TO NURSE STATION AND HAD TROUBLE FINDING HER ROOM AGAIN. PATIENT IS SLEEPING AT THIS TIME. WILL CONTINUE TO MONITOR.
--- NOTE | 2020-07-18 06:28 | NUR ---
PATIENT AWOKE ONE MORE TIME TONITE AROUND 0430. SHE SAT IN DINING ROOM BUT RETURNED TO HER ROOM WITHIN 15 MINUTES AND FELL BACK TO SLEEP. CPAP MACHINE WAS REMOVED FROM HER ROOM AT THAT TIME D/T SHE DID NOT WANT TO WEAR IT. PATIENT WAS MORE COHERENT AND ALERT THIS TIME WHEN SHE AWAKENED. DENIES PAIN, SI/HI/AVH. CONTINUING TO MONITOR.
[2020-07-18 08:58] VITALS: BP 144/77
--- NOTE | 2020-07-18 09:38 | NUR ---
0700 ASSUMED CARE OF PATIENT, PATIENT SITTING IN CHAIR AT THAT TIME. PATIENT DENIED NEEDS. PATIENT DID NOT EAT MUCH BREAKFAST, REFUSING THE SUPPLEMENT. PATIENT DOES STATE BEING A BIT ANXIOUS ABOUT BEING DC'D TODAY. PATIENT IS CALM AND COOPERATIVE. LS CLEAR, BS ACTIVE. DENIES SI/HI, 0820 MEDICATIONS GIVEN WHOLE WITHOUT DIFFICULTY. C/O PEARSON. TYLENOL 650MG PO GIVEN FOR PAIN RATING A 4/10. ON REASSESSMENT PATIENT STATES "PAIN IS LESS I ONLY HAVE PRESSURE", RATES PAIN A 2/10. PATIENT PRESENT IN GROUP THIS AM
[2020-07-18] MEDS ORDERED: REMERON 30 MG T30 M1 PO (09:41)
[2020-07-18] MEDS ORDERED: CALTRATE-600 W1 EACH PO (09:43)
[2020-07-18] MEDS ORDERED: B-12500 MCG PO (09:43)
[2020-07-18] MEDS ORDERED: VITAMIN D325 MC1 PO (09:44)
--- NOTE | 2020-07-18 11:35 | NUR ---
BS OBTAINED AT 1030 PRIOR TO DC. BS 96 AT THAT TIME. PATIENT CALM AND COOPERATIVE. DC INSTRUCTIONS GIVEN PATIENT VOICED UNDERSTANDING. COPIES OF DC INSTRUCTION, SW HANDOUT, RX SCRIPT AND MEDICARE FORM GIVEN TO PATIENT. PERSONAL BELONGING IN HAND. PATIENT TRANSPORTED TO ER EXIT VIA WITH STAFF. PATIENT TO SECURITY TO [employer] OTHER BELONGINGS. TRANSPORT [facility] HERE TO [facility] [employer] PT. DC AT 1105.
--- NOTE | 2020-07-18 12:13 | NUR ---
SW D/C NOTE SRI faxed a copy of pt's d/c docs, neuropsych report, and SW handout to both [facility] and [facility]. SRI provided pt a copy of her SW hand out. SRI will file this fax and confirmation page in pt's hospital file. SRI informed Reji that pt had discharge. No other needs for SW team to address at this time.
--- NOTE | 2020-07-20 10:42 | NUR ---
DAUGHTER, IDALIA, CALLED STATING HER MOTHER NEEDED LISINOPRIL 10 MG PO QD ORDERED. CALL PLACED TO DR. CRAWFORD WHO GAVE AN ORDER FOR THIS. CALL WAS PLACED TO [facility] ON [address]. ORDER GIVEN TO THE PHARMACIST. DAUGHTER CALLED AND INFORMED OF MEDICATION AT THE PHARMACY.
== END 2020-07-18 11:15 | disposition home health service (06) | DRG 885 ==
LOC: SBH
PROVIDERS: ADMIT Psychiatry & Neurology Psychiatry; ATTEND Psychiatry & Neurology Psychiatry
DX: F32.2 Major depressive disorder, single episode, severe without psychotic features (principal); E43 Unspecified severe protein-calorie malnutrition; N39.0 Urinary tract infection, site not specified; R44.3 Hallucinations, unspecified; F03.91 Unspecified dementia, unspecified severity, with behavioral disturbance; I10 Essential (primary) hypertension; E11.9 Type 2 diabetes mellitus without complications; E53.8 Deficiency of other specified B group vitamins; E78.5 Hyperlipidemia, unspecified; E55.9 Vitamin D deficiency, unspecified; F43.21 Adjustment disorder with depressed mood; R41.0 Disorientation, unspecified; F41.1 Generalized anxiety disorder; Z79.899 Other long term (current) drug therapy; Z88.2 Allergy status to sulfonamides
CPT/HCPCS: 10880